=== PATIENT | female | born 1985 | race Caucasian/White ===

== ENCOUNTER → 2016-11-27 | Outpatient (CLI) | payer OTHER | END | disposition home or self-care (01) | LOC: LABPAT 16:01 | PROVIDERS: ATTEND Surgery | DX: Z01.810 Encounter for preprocedural cardiovascular examination (principal); I10 Essential (primary) hypertension | CPT/HCPCS: 93005 ==

== ENCOUNTER 2016-11-29 07:03 | Day surgery (SDC) | payer OTHER ==
--- NOTE | 2016-11-11 08:54 | HP ---
DATE OF ADMISSION: CHIEF COMPLAINT: Cholecystitis. HISTORY OF PRESENT ILLNESS: Patient is a 31-year-old female who has had intermittent attacks of right upper quadrant pain with radiation to the back. This has been going on since she was a teenager. She had a recent ultrasound showing a 4 cm gallstone. Recent labs were normal. No nausea or vomiting. No change in the color of her skin, urine or stool. PAST MEDICAL HISTORY: Diabetes, hypertension, obesity. Past surgical history is ECMO. MEDICATIONS: Metformin, atorvastatin, lisinopril, Provera, ( ). ALLERGIES: PENICILLIN, AMOXICILLIN. PHYSICAL EXAM: HEENT is normocephalic. Sclerae anicteric. Chest is clear. HEART: Regular rate and rhythm. Abdomen is soft, obese, nontender, nondistended. IMPRESSION: A 31-year-old female with chronic cholecystitis. PLAN: Will proceed with laparoscopic cholecystectomy, possible open cholecystectomy on 12/01. The risks of bleeding, infection, biloma formation, common bile duct injury, retained CBD stone, trocar-related injury and conversion to an open procedure were discussed. The patient understands and wishes to proceed.
[2016-11-23 11:10] VITALS: BMI 53.2
[~2016-11-29 07:03] MED LIST: CLINDAMYCIN 900 MG in DEXTROSE 5% IN WATER 50 ML IVPB ONE; DEXAMETHASONE SOD PHOSPHATE 10 MG/ML 1 ML VIAL IV ONE; HEPARIN SODIUM,PORCINE 5,000 UNIT/ML 1 ML VIAL SQ ONE; HYDROmorphone 1 MG/ML 1 ML SYRINGE IVP PRN; LACTATED RINGERS 1,000 ML IV SCH; LIDOCAINE 1% 20 ML VIAL (10MG/ML) FOR IV START INTRADERMA PRN; MIDAZOLAM 2 MG/2 ML VIAL IV PRN; ONDANSETRON 4 MG/2 ML VIAL IVP ONE; SCOPOLAMINE 1.5MG/72HR PATCH TRANSDERM ONE
[2016-11-29 08:03] LABS: Glucose,Whole Blood 196 mg/dL (75-99)
[2016-11-29] MEDS ORDERED: fentaNYL (PF) 50 MCG/ML 2 ML AMP ONE (08:11)
[2016-11-29] MEDS ORDERED: ROCURONIUM BROMIDE 10 MG/ML 10 ML VIAL IV ONE (08:11)
[2016-11-29] MEDS ORDERED: PROPOFOL 10 MG/ML 20 ML VIAL IV ONE (08:11)
[2016-11-29] MEDS ORDERED: KETOROLAC 30 MG/ML 1 ML VIAL ONE (08:11)
[2016-11-29] MEDS ORDERED: NEOSTIGMINE 1 MG/ML 10 ML VIAL ONE (08:11)
[2016-11-29] MEDS ORDERED: SUCCINYLCHOLINE CHLORIDE VIAL 200 MG/10 ML VIAL IV ONE (08:11)
[2016-11-29] MEDS ORDERED: LIDOCAINE 1% INJ 10MG/ML (20 ML MDV) ONE (08:11)
[2016-11-29] MEDS ORDERED: GLYCOPYRROLATE 0.2 MG/ML 2 ML VIAL ONE (08:11)
[2016-11-29] MEDS ORDERED: MIDAZOLAM 2 MG/2 ML VIAL ONE (08:11)
[2016-11-29] MEDS ORDERED: HYDROmorphone (PF) 1 MG/ML ONE (08:11)
[2016-11-29] MEDS ORDERED: BUPIVACAIN-EPI 0.25%-1:200,000 30 ML VIAL SQ ONE ×2 (08:33)
[2016-11-29] MEDS ORDERED: LACTATED RINGERS 1,000 ML IV ONE (08:58)
[2016-11-29 09:48] VITALS: TEMP 98
[2016-11-29] MEDS ORDERED: NALOXONE 0.4 MG/ML 1 ML VIAL IV PRN (10:03)
[2016-11-29] MEDS ORDERED: HYDROcodone/APAP 5-325MG 1 EACH TAB PO PRN (10:03)
--- NOTE | 2016-11-29 10:05 | P.PCN ---
Date of Procedure: 11/29/16 Procedure(s) Performed: PREOPERATIVE DIAGNOSIS: Chronic cholecystitis POSTOPERATIVE DIAGNOSIS: Same PROCEDURE: Laparoscopic cholecystectomy SURGEON: Wenceslao EBL: Minimal see anesthesia record ANESTHESIA: Gen. COMPLICATIONS: None OPERATIVE PROCEDURE: The patient was brought and placed on the operating room table in the supine position. The patient was placed under general anesthesia at that time. The abdomen was prepped and draped in the usual sterile fashion. A small vertical supraumbilical incision was made. The fascia was grasped with the Dayan forceps. The fascia was retracted anteriorly. The Veress needle was advanced into the peritoneal cavity. The saline drop test was normal. Insufflation took place up to 15 mmHg. A 5 mm optical trocar was advanced and the peritoneal cavity. 2 additional 5 mm trochars were placed in the right upper quadrant under direct visualization. A 10 mm trocar was advanced into the epigastric incision site. Later the 10 mm was switched to a 12 mm trocar. The gallbladder was retracted superiorly and laterally. There was a portion of liver that was adherent to some omental fat. This was dissected using the Harmonic scalpel. The peritoneum overlying the infundibulum was bluntly dissected. The patient's cystic duct was visualized. The junction between the cystic duct common and hepatic duct was identified. The cystic duct was then divided after placement of 3 12 mm clips on the patient 's side and one on the specimen side. The cystic artery was identified and clipped as well. A small vessel was seen along the gallbladder fossa and clipped as well. The gallbladder was then removed from the liver bed using electrocautery. The gallbladder was impressively intrahepatic. The gallbladder was then removed from the epigastric trocar site with an Endo Catch bag. The gallbladder fossa was irrigated with saline. There was no evidence of any bleeding or biliary drainage seen. The trochars were then removed. The fascia at the 12 mm trocar site was closed using the Deniz Dumont technique and 0 Vicryl sutures. The skin at all 4 sites was closed using a 4-0 Monocryl stitch. At the end of this procedure the sponge and needle counts were correct. DISPOSITION: Stable to the recovery room
[2016-11-29 10:32] LABS: Glucose,Whole Blood 201 mg/dL (75-99)
[2016-11-29] MEDS ORDERED: INSULIN LISPRO (humaLOG) 300 UNIT/3 ML VIAL SQ ONE (10:35)
[2016-11-29 11:38] VITALS: BP 98/65; PULSE 89; RESP 20
== END 2016-11-29 12:05 | disposition home or self-care (01) ==
LOC: OR 07:03
PROVIDERS: ATTEND Surgery
DX: K80.10 Calculus of gallbladder with chronic cholecystitis without obstruction (principal); E11.9 Type 2 diabetes mellitus without complications; I10 Essential (primary) hypertension; Z79.84 Long term (current) use of oral hypoglycemic drugs; Z79.899 Other long term (current) drug therapy; Z88.1 Allergy status to other antibiotic agents; Z88.0 Allergy status to penicillin
CPT/HCPCS: 81025; 88304; 47562; J2250; J0330; J1644; J1100; J2710; J2405; J2001; J3010; J1885; J1170; J2704

== ENCOUNTER → 2021-08-15 | Outpatient (CLI) | payer BC, OTHER ==
--- NOTE | 2021-08-15 11:17 | US ---
EXAMINATION TYPE: US abdomen complete DATE OF EXAM: 08/15/2021 COMPARISON: US 2016 CLINICAL HISTORY: R06.00 Dyspnea. Pain, GB removed EXAM MEASUREMENTS: Liver Length: 17.5 cm CBD: 0.3 cm Spleen: 10.2 cm Right Kidney: 12.8 x 4.6 x 5.2 cm Left Kidney: 12.8 x 5.4 x 5.9 cm Morbidly obese pt, difficult image Pancreas: Obscured by bowel gas, and difficult to visualize due to obesity Liver: Heterogeneous, otherwise appeared wnl Gallbladder: Surgically absent Evidence for sonographic Hull's sign: No CBD: wnl Spleen: wnl Right Kidney: wnl, lower pole gassed out Left Kidney: wnl, lower pole gassed out Upper IVC: wnl Abd Aorta: wnl The liver is heterogeneous with poor penetration. The intrahepatic portion of the IVC and proximal a bdominal aorta are within normal limits. Gallbladder is surgically absent. Common bile duct is unrema rkable. The visualized portions of the pancreas are homogenous. The spleen is unremarkable. Kidney s are symmetric and free of hydronephrosis. No renal lesions are seen. IMPRESSION: 1. Heterogeneous liver with poor penetration and increased echogenicity is nonspecific and can be see n with hepatic steatosis. Please correlate with patient's clinical scenario. 2. Surgically absent gallbladder.
--- NOTE | 2021-08-15 17:00 | ECHOF ---
Referral Reason:R06.00 Dyspnea MEASUREMENTS -------- HEIGHT: 165.1 cm WEIGHT: 133.8 kg BP: IVSd: 1.2 cm (0.6 - 1.1) LVIDd: 4.0 cm (3.9 - 5.3) LVPWd: 1.1 cm (0.6 - 1.1) EDV(Teich): 68 ml IVSs: 1.6 cm LVIDs: 3.0 cm LVPWs: 1.5 cm %IVS Thck: 31 % ESV(Teich): 34 ml EF(Teich): 50 % %FS: 25 % SV(Teich): 34 ml LA Diam: 2.9 cm (2.7 - 3.8) RVIDd: 2.7 cm (< 3.3) LALs A4C: 5.6 cm LAAs A4C: 17.6 cm LAESV A-L A4C: 47 ml LAESV MOD A4C: 42 ml LALs A2C: 4.5 cm LAAs A2C: 18.2 cm LAESV A-L A2C: 62 ml LAESV MOD A2C: 61 ml LAESV(A-L): 60 ml LAESV Index (A-L): 25.92 ml/m Ao Diam: 3.5 cm (2.0 - 3.7) AV Cusp: 2.3 cm (1.5 - 2.6) EPSS: 0.5 cm MV E Cristian: 0.63 m/s MV DecT: [address] [facility]: 2.6 m/s MV A Cristian: 0.54 m/s MV E/A Ratio: 1.16 MV PHT: 71 ms AV Vmax: 1.25 m/s AV maxP.23 mmHg MV EF SLOPE: 84.03 mm/s (70 - 150) MV EXCURSION: 18.74 mm (> 18.000) FINDINGS -------- Sinus rhythm. This was a technically adequate study. The left ventricular size is normal. There is borderline concentric left ventricular hypertrophy. Overall left ventricular systolic function is normal with, an EF between 60 - 65 %. The right ventricle is normal in size. Normal LA size by volume 22+/-6 ml/m2. The right atrium is normal in size. Interatrial and interventricular septum intact. The aortic valve is trileaflet, and appears structurally normal. No aortic stenosis or regurgitation. The mitral valve is normal. The tricuspid valve appears structurally normal. Unable to estimate RVSP due to inadequate TR jet s pectral doppler profile. Trace/mild (physiologic) pulmonic regurgitation. The aortic root size is normal. Normal inferior vena cava with normal inspiratory collapse consistent with estimated right atrial pre ssure of 5 mmHg. There is no pericardial effusion. CONCLUSIONS -------- 1. The left ventricular size is normal. 2. There is borderline concentric left ventricular hypertrophy. 3. Overall left ventricular systolic function is normal with, an EF between 60 - 65 %. 4. The aortic valve is trileaflet, and appears structurally normal. No aortic stenosis or regurgitati on. 5. Trace/mild (physiologic) pulmonic regurgitation. 6. There is no pericardial effusion. [employer]: KHOA Weinstein
== END | disposition home or self-care (01) ==
LOC: RADUSWWP 07:48
PROVIDERS: ATTEND Family Medicine
DX: K76.89 Other specified diseases of liver (principal); I37.1 Nonrheumatic pulmonary valve insufficiency
CPT/HCPCS: 76700; 93306